=== PATIENT | female | born 1990 | race Caucasian/White ===

== ENCOUNTER → 2020-11-10 | Outpatient (CLI) | payer BC, OTHER ==
[~2020-11-10] MED LIST: COLACE 100MG C100 MG PO
[2020-11-11 07:11] LABS: RHEUMATOID ARTHRITIS FACTOR <10.0 IU/mL (0.0-13.9); VITAMIN D, 25-HYDROXY 27.7 ng/mL (30.0-100.0)
[2020-11-12 00:09] LABS: CCP ANTIBODIES IGG/IGA 5 units (0-19)
== END ==
LOC: LAB 10:39
PROVIDERS: Nurse Practitioner Family
DX: M25.562 Pain in left knee (principal); M25.561 Pain in right knee; D89.9 Disorder involving the immune mechanism, unspecified; R76.8 Other specified abnormal immunological findings in serum; M25.50 Pain in unspecified joint
CPT/HCPCS: 73565; 82550; 83520; 85652; 86140; 86200; 86431